=== PATIENT | female | born 1985 | race Caucasian/White ===

== ENCOUNTER → 2019-03-19 | Outpatient (CLI) | payer BC ==
--- NOTE | 2019-03-19 12:12 | RAD ---
Examination: VENOUS LOWER EXTREMITY RIGHT History: Pain COMPARISON/CORRELATION: None FINDINGS: S[place] lower extremity duplex venous ultrasound exam was performed. Grayscale, color Doppler, and spectral Doppler imaging was performed. Compression and augmentation was performed. The right common femoral vein, superficial femoral vein, popliteal vein, and greater saphenous vein are normal with no evidence of deep venous thrombus. Normal compressibility and augmentation is evident. Visualized right calf veins are unremarkable IMPRESSION: Normal right lower extremity duplex ultrasound exam. No evidence of deep venous thrombus involving the right lower extremity. Electronically signed by: Dax Ovalle MD (03/19/2019 12:09 PM) [facility]
== END | disposition home or self-care (01) ==
LOC: US 11:22
PROVIDERS: ATTEND Physician Assistant
DX: M79.661 Pain in right lower leg (principal); R60.0 Localized edema
CPT/HCPCS: 93971